=== PATIENT | female | born 1945 | race Caucasian/White ===

== ENCOUNTER → 2020-01-07 11:26 | Outpatient (CLI) | payer MEDICARE, SELFPAY ==
--- NOTE | ~2020-01-07 | MM_ITS ---
EXAMINATION: MM screening fermin RT w alton HISTORY: Screening mammogram TECHNIQUE: Craniocaudal and mediolateral oblique 3-D tomosynthesis images were obtained and synthetic 2-D images were generated. CAD analysis was submitted and interpreted. COMPARISON: Serial right mammogram examinations from 01/04/2019 through 11/28/2013 BREAST PARENCHYMAL COMPOSITION: There are scattered areas of fibroglandular density. FINDINGS: There is no evidence of suspicious mass, calcification, or architectural distortion to sugg est malignancy in either breast. There has been no suspicious interval change. IMPRESSION: 1. No mammographic evidence of malignancy. 2. Recommend routine screening mammography in one year. BI-RADS Category 1: Negative Reviewed, dictated and finalized at location A.
== END ==
DX: Z12.31 Encounter for screening mammogram for malignant neoplasm of breast (principal)
CPT/HCPCS: 77063; 77067

== ENCOUNTER → 2020-10-24 07:35 | Outpatient (CLI) | payer MEDICARE, SELFPAY ==
--- NOTE | ~2020-10-24 | MMUS_ITS ---
EXAMINATION: MM diagnostic fermin BI w alton, US axilla LT HISTORY: Patient with history of left mastectomy and flap reconstruction with a questionable enlarged left axillary lymph node on outside hospital CT of the chest. TECHNIQUE: Craniocaudal, mediolateral, and mediolateral oblique 3-D tomosynthesis images of the breas ts were performed and synthetic 2-D images were generated. CAD analysis was submitted and interpreted . High resolution limited left breast and left axillary ultrasound was performed. COMPARISON: 01/07/2020, 01/04/2019, 12/15/2017 BREAST PARENCHYMAL COMPOSITION: There are scattered areas of fibroglandular density. FINDINGS: MAMMOGRAPHIC FINDINGS: There is no evidence of suspicious mass, calcification, or architectural distortion in the right keaton ast to suggest malignancy. There has been no suspicious interval change. Changes of flap reconstructi on noted on the left. ULTRASOUND: No suspicious mass is identified in the upper outer aspect of the reconstructed breast. No pathologic ally enlarged axillary lymph node is identified. IMPRESSION: 1. No specific mammographic or sonographic correlate is identified for the reported palpable abnormal ity of concern. Further evaluation at this time should be based on clinical assessment. Continued fol low-up physical examination is recommended. 2. Recommend routine screening mammography in one year. BI-RADS Category 1: Negative Reviewed, dictated and finalized at location A. IMPRESSION: 1. No specific mammographic or sonographic correlate is identified for the repo rted palpable abnormality of concern. Further evaluation at this time should be based on clinical assessment. Continued follow-up physical examination is marifer mmended. 2. Recommend routine screening mammography in one year. BI-RADS Category 1: Negative
== END ==
DX: R22.32 Localized swelling, mass and lump, left upper limb (principal); Z12.31 Encounter for screening mammogram for malignant neoplasm of breast; N64.59 Other signs and symptoms in breast
CPT/HCPCS: 76882; 77062; 77066; G0279

== ENCOUNTER → 2021-12-30 12:24 | Outpatient (CLI) | payer MEDICARE, SELFPAY ==
--- NOTE | ~2021-12-30 | MM_ITS ---
EXAMINATION: MM screening fermin RT w alton HISTORY: Screening TECHNIQUE: Craniocaudal and mediolateral oblique 3-D tomosynthesis images were obtained and synthetic 2-D images were generated. CAD analysis was submitted and interpreted. COMPARISON: Comparison to multiple prior studies sequentially, with oldest reviewed study dated 12/01. BREAST PARENCHYMAL COMPOSITION: There are scattered areas of fibroglandular density. FINDINGS: There is no evidence of suspicious mass, calcification, or architectural distortion to sugg est malignancy in the right breast. There has been no suspicious interval change. IMPRESSION: 1. No mammographic evidence of malignancy. 2. Recommend routine screening mammography in one year. BI-RADS Category 1: Negative Reviewed, dictated and finalized at location A.
== END ==
DX: Z12.31 Encounter for screening mammogram for malignant neoplasm of breast (principal)
CPT/HCPCS: 77063; 77067

== ENCOUNTER 2022-08-12 10:52 | Emergency (ER) | payer MEDICARE, SELFPAY ==
--- NOTE | ~2022-08-12 | XR_ITS ---
EXAMINATION: XR knee RT min 4V DATE: 08/12/2022 12:53 INDICATION: Right knee pain. TECHNIQUE: 4 views of right knee were obtained. COMPARISON: Right knee radiographs 03/23/2011 FINDINGS: Bone alignment is normal. No fracture. There is mild tricompartmental osteoarthritis. There is chondrocalcinosis of the menisci. There are dystrophic calcifications of the joint capsule. No kn ee joint effusion. IMPRESSION: 1. Mild right knee osteoarthritis. Reviewed, dictated and finalized at location A. RNMENT AFFAIRS MANAGER
--- NOTE | ~2022-08-12 | US_ITS ---
EXAMINATION: US venous doppler LE RT DATE: 08/12/2022 12:47 INDICATION: Right lower limb pain and swelling. TECHNIQUE: Grayscale ultrasound images without and with compression and Doppler ultrasound images of the right lower extremity veins were obtained. COMPARISON: None. FINDINGS: The visualized portions of right common femoral vein, profunda (deep) femoral vein, femoral vein, pop liteal vein, peroneal veins, posterior tibial veins, and greater saphenous vein outflow are patent. IMPRESSION: 1. No deep venous thrombosis. Reviewed, dictated and finalized at location A. T STORY WRITER
[2022-08-12 11:11] VITALS: BP 123/58; PULSE 64; RESP 12; TEMP 36.4; O2SAT 98
--- NOTE | 2022-08-12 12:14 | ED.GENADULT ---
HPI - General Adult General Chief complaint: Extremity Problem,Nontraumatic Stated complaint: right leg swelling and pain Time Seen by Provider: 08/12/22 12:09 History of Present Illness HPI narrative: 77-year-old presenting to the emergency department for evaluation of worsening right knee pain and right lower extremity pain. Patient states approximately a week ago she started having pain behind the right knee and does have some swelling behind the right knee. Patient states over the course of the week she has had pain progressing down the right calf. Patient denies any falls or injuries. Patient denies any prior history of Rain's cyst or clots in the lower legs. Related Data Allergies Allergy/AdvReac Type Severity Reaction Status Date / Time No Known Allergies Allergy Verified 08/12/22 11:13 Review of Systems Review of Systems: CONSTITUTIONAL: Denies fever, chills, or sweats. EYES: Denies visual changes, redness, or discharge. ENT: Denies rhinorrhea, congestion, sore throat, or otalgia. CARDIOVASCULAR: Denies chest pain, palpitations, or edema. RESPIRATORY: Denies cough or dyspnea. GASTROINTESTINAL: Denies abdominal pain, nausea, vomiting, or diarrhea. GENITOURINARY: Denies dysuria or hematuria. SKIN: Denies rash or itching. MUSCULOSKELETAL: See HPI NEUROLOGIC: Denies headache, numbness, or weakness. Exam Narrative: APPEARANCE: Well appearing, no pain, no distress, well-nourished. HEAD: normocephalic, atraumatic. EYES: PERRLA/EOMI, conjunctivae clear. NOSE: Normal no drainage NECK: Supple. No adenopathy, no masses. RESPIRATORY: Airway patent, respirations nonlabored. Clear to auscultation bilaterally, no rales, rhonchi, wheezing. CARDIOVASCULAR: Regular rate and rhythm without murmurs rubs or gallops. ABDOMINAL: Soft, nontender, nondistended, normal bowel sounds MUSCULOSKELETAL: Moves all extremities. Posterior right knee tenderness to palpation. Right calf tenderness. Mild edema, no erythema NEURO: Alert. Cranial nerves II through XII intact. Good gait. Good coordination SKIN: Warm, dry. Normal Color Course Course Emergency Course: 77-year-old female with posterior right knee pain and lower extremity swelling. Ultrasound was negative for DVT. X-ray showed no acute fracture or dislocation. Patient and family were updated on the results of the work-up and plan for treatment. All questions concerns were addressed. 2:09 PM patient and family are comfortable to plan for discharge and close follow-up. Patient was advised to take Aleve for pain control, patient states she does take this at home intermittently for pain. Patient will also be provided Flexeril for additional pain control. Patient was encouraged of close follow-up with her primary care physician to determine if they want to do any additional outpatient imaging of the knee such as an MRI. Vital Signs Vital signs: Vital Signs Temperature 97.5 F L 08/12/22 11:11 Pulse Rate 64 08/12/22 11:11 Respiratory Rate 12 08/12/22 11:11 Blood Pressure 123/58 L 08/12/22 11:11 Pulse Oximetry 98 08/12/22 11:11 Oxygen Delivery Room Air 08/12/22 11:11 Temperature 97.5 F L 08/12/22 11:11 Pulse Rate 64 08/12/22 11:11 Respiratory Rate 12 08/12/22 11:11 Blood Pressure 123/58 L 08/12/22 11:11 Pulse Oximetry 98 08/12/22 11:11 Oxygen Delivery Room Air 08/12/22 11:11 Medical Decision Making Vital Signs Vital Signs: Vital Signs Temperature 97.5 F L 08/12/22 11:11 Pulse Rate 64 08/12/22 11:11 Respiratory Rate 12 08/12/22 11:11 Blood Pressure 123/58 L 08/12/22 11:11 Pulse Oximetry 98 08/12/22 11:11 Oxygen Delivery Room Air 08/12/22 11:11 Temperature 97.5 F L 08/12/22 11:11 Pulse Rate 64 08/12/22 11:11 Respiratory Rate 12 08/12/22 11:11 Blood Pressure 123/58 L 08/12/22 11:11 Pulse Oximetry 98 08/12/22 11:11 Oxygen Delivery Room Air 08/12/22 11:11 Imaging Data Radiologist's impression:
== END 2022-08-12 14:28 | disposition home or self-care (01) ==
PROVIDERS: Emergency Provider Emergency Medicine
DX: M25.561 Pain in right knee (principal); M17.11 Unilateral primary osteoarthritis, right knee; M79.661 Pain in right lower leg
CPT/HCPCS: 73564; 93971; 99284

== ENCOUNTER → 2023-02-28 13:14 | Outpatient (CLI) | payer MEDICARE, SELFPAY ==
--- NOTE | ~2023-02-28 | MM_ITS ---
EXAMINATION: MM screening fermin RT w alton HISTORY: Screening TECHNIQUE: Craniocaudal and mediolateral oblique 3-D tomosynthesis images were obtained and synthetic 2-D images were generated. CAD analysis was submitted and interpreted. COMPARISON: No prior mammogram is available for comparison at this institution. BREAST PARENCHYMAL COMPOSITION: FINDINGS: There is no evidence of suspicious mass, calcification, or architectural distortion to sugg est malignancy in the right breast. There has been no suspicious interval change. IMPRESSION: 1. No mammographic evidence of malignancy. 2. Recommend routine screening mammography in one year. BI-RADS Category 1: Negative Reviewed, dictated and finalized at location A.
== END ==
DX: Z12.31 Encounter for screening mammogram for malignant neoplasm of breast (principal)
CPT/HCPCS: 77063; 77067

== ENCOUNTER 2024-01-25 05:52 | Emergency (ER) | payer MEDICARE, SELFPAY ==
[2024-01-25] VITALS (11 sets, daily range): BP systolic 154–187; BP diastolic 82–93; PULSE 55–68; RESP 12–21; TEMP 36.2; O2SAT 95–98
--- NOTE | ~2024-01-25 | XR_ITS ---
XR ribs RT 2V Ordering provider: Kita Ruiz MD History: . fall YESTERAY PAIN TO RT SIDED RIBS . Comparison: None. FINDINGS: BONES: Possible fracture anteriorly in the right fifth and sixth ribs. Degenerative changes of the spine. LUNGS: No effusions or infiltrates. No pneumothorax. SOFT TISSUES: Normal. IMPRESSION: Possible fracture in the right fifth and sixth ribs. Clinical correlation advised Reviewed, dictated and finalized at location A. IMPRESSION: Possible fracture in the right fifth and sixth ribs. Clinical correlation advis ed
--- NOTE | ~2024-01-25 | XR_ITS ---
EXAMINATION: XR chest 2V DATE: 01/25/2024 06:37 INDICATION: Right chest pain. Fall. TECHNIQUE: Frontal and lateral views of the chest were obtained. COMPARISON: Chest 2 views 06/03/2020, chest CT 09/02/2020 FINDINGS: There is chronic scarring in left upper lobe, likely radiation pneumonitis. No pleural effu diana or pneumothorax. The heart size is normal. Calcified right hilar lymph nodes are consistent with old granulomatous disease. There are surgical clips in left chest wall and in the abdomen. IMPRESSION: 1. Chronic scarring in left lung upper lobe, likely radiation pneumonitis. Reviewed, dictated and finalized at location A.
--- NOTE | ~2024-01-25 | CT_ITS ---
CT cervical spine wo con Ordering provider: Kita Ruiz MD History: . fall . Comparison: None. Technique: CT of the cervical spine was performed without contrast. Sagittal and coronal reformatted images were also obtained and reviewed. Automated exposure control and iterative reconstruction roselia hnique were employed. The dose-length product was 197.28 mGy-cm. FINDINGS: VERTEBRAE: No subluxation or acute fracture. The occipital condyles are intact. DISC SPACES: Narrowing of the disc spaces C3-C4, C4-C5, C5-C6 and C6-C7. Multilevel facet joint disea se bilaterally. Multilevel uncovertebral joint osteoarthritic changes. C1-C2: Normal. C2-C3: Slight narrowing of the left foramen. C3-C4: Osteophytes with bilateral narrowing of the foramina and nerve root compression. L4 C5: Posterior osteophytes with bilateral narrowing of the foramina and the root compression. C5-C6: Mild spinal canal stenosis with posterior osteophytes. Bilateral narrowing of the foramina wit h nerve root compression. C6-C7: Posterior osteophytes with bilateral narrowing of the foramina and nerve root compression. PARASPINOUS SOFT TISSUES: Normal. IMPRESSION: No acute osseous abnormality cervical spine. Multilevel degenerative disc disease with variable degrees of intervertebral foraminal narrowing and with compression Reviewed, dictated and finalized at location A. IMPRESSION: No acute osseous abnormality cervical spine. Multilevel degenerative disc disease with variable degrees of intervertebral fo raminal narrowing and with compression
--- NOTE | ~2024-01-25 | CT_ITS ---
EXAMINATION: CT brain wo con DATE: 01/25/2024 06:42 INDICATION: Head injury. TECHNIQUE: Computed tomography (CT) of the head was performed without intravenous contrast. The mA wa s adjusted according to patient size. Iterative reconstruction technique was employed. The dose-lengt h product was 605.33 mGy-cm. COMPARISON: None FINDINGS: There is a perihippocampal cyst on the right. There are scattered areas of low attenuation in the cerebral white matter. There is no intracranial hemorrhage, acute infarction, or abnormal intr acranial mass lesion. The ventricles are normal in size. There are likely changes of ocular lens repl acement surgeries. There is mild mucosal thickening in the paranasal sinuses. The mastoid air cells a re normal. There is right periorbital soft tissue swelling. IMPRESSION: 1. Moderate nonspecific cerebral white matter disease, which likely represents chronic small vessel i schemic disease. Reviewed, dictated and finalized at location A. IMPRESSION: 1. Moderate nonspecific cerebral white matter disease, which likely represents chronic small vessel ischemic disease.
--- NOTE | 2024-01-25 07:21 | ED.FALL ---
HPI - Fall General Chief Complaint: Fall Stated Complaint: fall Time Seen by Provider: 01/25/24 07:05 Source: patient Mode of arrival: ambulatory Limitations: no limitations History of Present Illness HPI Narrative: 78 years old white female came to the emergency room by private car status post a fall while turning, lost her balance, landed on her right side of her body complaining of right rib pain, hit her head, on baby aspirin, no loss of consciousness also present with bruises around the right eye. Related Data Allergies Allergy/AdvReac Type Severity Reaction Status Date / Time No Known Allergies Allergy Verified 01/25/24 06:06 Review of Systems Review of Systems: All systems reviewed & are unremarkable except as noted in HPI and below Exam Narrative: General appearance: Well-developed, well-nourished Skin: Normal color right forearm skin avulsion Head: Normocephalic, nontraumatic Eyes: Clear conjunctiva, ecchymosis around the right eye, ears normal, nose normal Neck: Supple, slight tenderness right side Chest and respiratory: Airway patent, no respiratory distress, no accessory muscle use, quite a bit of tenderness right side of the chest with light palpation, no bruises Heart: Regular rate/rhythm Abdomen: Soft, nontender, no organomegaly, quiet bowel sounds Vascular: Normal peripheral pulses, normal capillary refill. Musculoskeletal: Normal range of motion, nontender back Neurologic: Alert and oriented ?3, CREDIT RISK SPECIALIST is normal as tested, no gross motor deficit Course Vital Signs Vital signs: Vital Signs Temperature 36.2 C L 01/25/24 06:00 Pulse Rate 67 01/25/24 06:00 Respiratory Rate 14 01/25/24 06:00 Blood Pressure 180/83 H 01/25/24 06:00 Pulse Oximetry 97 01/25/24 06:00 Oxygen Delivery Room Air 01/25/24 06:00 Temperature 36.2 C L 01/25/24 06:00 Pulse Rate 67 01/25/24 06:00 Respiratory Rate 14 01/25/24 06:00 Blood Pressure 180/83 H 01/25/24 06:00 Pulse Oximetry 97 01/25/24 06:00 Oxygen Delivery Room Air 01/25/24 06:00 MDM - Fall MDM Narrative Medical decision making narrative: Patient tripped and fell, Differential diagnosis include rib fracture, intracranial bleed, facial bone fracture CT head and cervical spine without contrast showed no acute abnormalities X-ray of the chest and right ribs showed possible nondisplaced fracture of the 5th and 6th rib Imaging Data Radiologist's impression: Impressions Chest X-Ray 01/25/24 06:38 IMPRESSION: 1. Chronic scarring in left lung upper lobe, likely radiation pneumonitis. Head CT 01/25/24 06:44 IMPRESSION: 1. Moderate nonspecific cerebral white matter disease, which likely represents chronic small vessel ischemic disease. Ribs X-Ray 01/25/24 09:03 IMPRESSION: Possible fracture in the right fifth and sixth ribs. Clinical correlation advised Cervical Spine CT 01/25/24 09:11 IMPRESSION: No acute osseous abnormality cervical spine. Multilevel degenerative disc disease with variable degrees of intervertebral foraminal narrowing and with compression Critical Care Time Critical Care Time Critical Care Time: No Discharge Plan Discharge Clinical Impression: Right rib fracture Patient Disposition: Home, Self-Care Condition: Stable Instructions: Rib Fracture (ED), Concussion (ED), Contusion in Adults (ED), Skin Avulsion (ED) Additional Instructions: Return if symptoms are worsening , call your family physician for appointment, take Tylenol as as needed for aches and pain, continue home medications. Prescriptions: No Action cyclobenzaprine 5 mg tablet 5 mg PO BID PRN
== END 2024-01-25 10:57 | disposition home or self-care (01) ==
PROVIDERS: Emergency Provider Emergency Medicine
DX: S22.41XA Multiple fractures of ribs, right side, initial encounter for closed fracture (principal); S00.11XA Contusion of right eyelid and periocular area, initial encounter; S51.801A Unspecified open wound of right forearm, initial encounter; R90.82 White matter disease, unspecified; W18.39XA Other fall on same level, initial encounter
CPT/HCPCS: 70450; 71046; 71100; 72125; 99284

== ENCOUNTER 2024-03-05 10:24 | Outpatient (CLI) | payer MEDICARE, SELFPAY ==
--- NOTE | ~2024-03-05 | MM_ITS ---
EXAMINATION: MM screening fermin RT w alton HISTORY: Screening TECHNIQUE: Craniocaudal and mediolateral oblique 3-D tomosynthesis images were obtained and synthetic 2-D images were generated. CAD analysis was submitted and interpreted. COMPARISON: Comparison to multiple prior studies sequentially, with oldest reviewed study dated 10/2017. BREAST PARENCHYMAL COMPOSITION: Not dense: There are scattered areas of fibroglandular density. FINDINGS: There is no evidence of suspicious mass, calcification, or architectural distortion to sugg est malignancy in the right breast. There has been no suspicious interval change. IMPRESSION: 1. No mammographic evidence of malignancy. 2. Recommend routine screening mammography in one year. BI-RADS Category 1: Negative Reviewed, dictated and finalized at location B.
== END 2024-03-05 10:25 | disposition home or self-care (01) ==
PROVIDERS: PCP Family Medicine Sports Medicine; Visit Provider Family Medicine Sports Medicine
DX: Z12.31 Encounter for screening mammogram for malignant neoplasm of breast (principal)
CPT/HCPCS: 77063; 77067

== ENCOUNTER 2025-03-07 10:03 | Outpatient (CLI) | payer MEDICARE, SELFPAY ==
--- NOTE | ~2025-03-07 | MM_ITS ---
EXAMINATION: MM screening fermin RT w alton HISTORY: Screening TECHNIQUE: Craniocaudal and mediolateral oblique 3-D tomosynthesis images were obtained and synthetic 2-D images were generated. CAD analysis was submitted and interpreted. COMPARISON: 1922 BREAST PARENCHYMAL COMPOSITION: Not Dense: The breasts are almost entirely fatty. FINDINGS: There is no evidence of suspicious mass, calcification, or architectural distortion to suggest malignancy. There has been no suspicious interval change. IMPRESSION: 1. No mammographic evidence of malignancy. Recommend routine screening mammography in one year. BI-RADS Category 2: Benign finding(s) Reviewed, dictated and finalized at location Q. IMPRESSION: 1. No mammographic evidence of malignancy. Recommend routine screening mammogra phy in one year. BI-RADS Category 2: Benign finding(s)
== END 2025-03-07 10:04 | disposition home or self-care (01) ==
LOC: MICIMG 10:04
PROVIDERS: PCP Nurse Practitioner Family; Visit Provider Nurse Practitioner Family
DX: Z12.31 Encounter for screening mammogram for malignant neoplasm of breast (principal)
CPT/HCPCS: 77063; 77067